=== PATIENT | female | born 1945 | race Caucasian/White ===

== ENCOUNTER → 2021-03-24 | Outpatient (CLI) | payer MEDICARE, OTHER ==
[~2021-03-24] MED LIST: AMLODIPINE BESYL5 MG PO; ARNUITY ELLIP200 MCG INH; ATORVASTATIN CA20 MG PO; BREO ELLIPTA 11 EACH INH; BUPROPION XL150 MG PO; CATAPRES 0.1MG0.1 MG PO; CLOPIDOGREL75 MG PO; COMBIVENT RESPIM4 GM INH; COZAAR50 MG PO; EVISTA60 MG PO; GABAPENTIN400 MG PO; HYDRALAZINE HCL50 MG PO; IMDUR ER TAB 6060 MG PO; IPRAT-ALBUT 0.5-3 ML INH; KLONOPIN TAB 00.5 MG PO; LASIX20 MG PO; LOPRESSOR 25 MG25 MG PO; MIRALAX 119 GR119 GM GT; MIRTAZAPINE45 MG PO; NEBULIZER UNIT; NORCO 5-325 TA1 EACH PO; OMNICEF 300 MG300 MG PO; POTASSIUM CHLO10 MEQ PO; PREDNISONE10 MG PO; PREDNISONE20 MG PO; PROTONIX40 MG PO; SYNTHROID25 MCG PO; TRAZODONE HCL150 MG PO; VIBRAMYCIN100 MG PO; ZOCOR20 MG PO
== END ==
LOC: HEART 5 14:55
DX: I48.0 Paroxysmal atrial fibrillation (principal)

== ENCOUNTER → 2021-03-31 | Outpatient (CLI) | payer MEDICARE, OTHER | LOC: ECHO 11:44 | DX: I48.0 Paroxysmal atrial fibrillation (principal) | CPT/HCPCS: ECHO; 93306 ==

== ENCOUNTER 2021-04-02 15:04 | Emergency (ER) | payer MEDICARE, OTHER ==
[2021-04-02 16:49] LABS: HEMOGLOBIN 12.2 gm/dl (12.3-15.3); RED BLOOD COUNT 3.83 M/UL (4.00-5.10); WHITE BLOOD COUNT 6.8 K/UL (4.5-11.0)
[2021-04-02 17:23] LABS: BUN/CREATININE RATIO 14 (0-10)
[2021-04-02] MEDS ORDERED: OMNICEF 300 MG300 MG PO (17:55)
== END 2021-04-02 18:30 | disposition home or self-care (01) ==
LOC: ER1 15:04
PROVIDERS: Family Medicine
DX: N39.0 Urinary tract infection, site not specified (principal); K59.00 Constipation, unspecified; N28.9 Disorder of kidney and ureter, unspecified; I48.91 Unspecified atrial fibrillation; E11.9 Type 2 diabetes mellitus without complications; I10 Essential (primary) hypertension; F17.210 Nicotine dependence, cigarettes, uncomplicated; Z79.899 Other long term (current) drug therapy
CPT/HCPCS: 36415; 70450; 71045; 80053; 81001; 82550; 82553; 83605; 83690; 83735; 83874; 84439; 84443; 84484; 85025; 87086; 93005; 96374; 99285; J0696